=== PATIENT | male | born 1965 | race Hispanic/Latino ===

== ENCOUNTER 2022-07-28 05:27 | Emergency (ER) | payer OTHER, BC ==
[2022-07-28] MEDS ORDERED: Boostrix 0.5 ML (Tdap) VIAL (>/=7 yrs of age) ONE (05:49)
[2022-07-28 06:09] LABS: ALT (SGPT) 11 U/L (8-55); AST (SGOT) 12 U/L (5-34); Albumin 3.9 g/dL (3.5-5.0); Alkaline Phosphatase 67 U/L (40-110); Anion Gap 16 mmol/L (10-20); BUN (Urea Nitrogen) 47 mg/dL (8.4-25.7); Bilirubin, Total 0.6 mg/dL (0.2-1.2); Calc. Creatinine Clearance 0 mL/min (70-130); Calcium 8.9 mg/dL (7.8-10.44); Carbon Dioxide 24 mmol/L (22-29); Chloride 104 mmol/L (98-107); Estimated GFR 10; Globulin 3.8 g/dL (2.4-3.5); Glucose 147 mg/dL (70-105); Potassium 3.9 mmol/L (3.5-5.1); Protein, Total 7.7 g/dL (6.0-8.3); Sodium 140 mmol/L (136-145)
[2022-07-28 06:10] LABS: Acetaminophen Less than 10.0 mcg/mL (10.0-30.0); Alcohol Less than 10 mg/dL (Less than 10); Lipase 93 U/L (8-78); Salicylate Less than 8.0 mg/dL (15.0-30.0)
[2022-07-28 06:23] LABS: Actual Bicarbonate (HCO3v) 24 mEq/L (22-28); Base Excess -1.2 mEq/L (-2.0 to +3.0); Calcium, Ionized (venous) 1.08 mmol/L (1.16-1.32); Chloride (VBG) 103 mmol/L (98-106); Hemoglobin (Hb) 12.2 g/dL (13.1-17.2); Potassium (VBG) 3.59 mmol/L (3.70-5.30); Sodium 138.3 mmol/L (133-146); pH (venous) 7.39 (7.32-7.43)
[2022-07-28 07:25] LABS: #Basophils 0.1 thou/uL (0.0-0.2); #Eosinphils 0.2 thou/uL (0.0-0.7); #Lymphocytes 1.7 thou/uL (1.20-3.40); #Monocytes 0.6 thou/uL (0.11-0.59); #Neutrophils 8.7 thou/uL (1.40-6.50); %Basophils 0.6 % (0.0-1.0); %Eosinophils 1.9 % (0.0-10.0); %Lymphocytes 15.5 % (21.0-51.0); %Neutrophils 77.1 % (42.0-75.0); Hemoglobin 11.7 g/dL (14.0-18.0); Mean Corpuscular HGB CONC 34.9 g/dL (32.0-36.0); Mean Corpuscular Hemoglobin 31.4 pg (27.0-31.0); Mean Corpuscular Volume 89.9 fl (78.0-98.0); Mean Platelet Volume 7.4 fL (7.4-10.4); Platelet Count 251 10x3/uL (130-400); RBC Distribution Width 12.8 % (11.5-14.5); Red Blood Cell (RBC) Count 3.72 mill/uL (4.70-6.10); White Blood Cell (WBC) Count 11.3 10x3/uL (4.8-10.8)
[2022-07-28] MEDS ORDERED: Iopamidol 370 76% 100 ML VIAL ONE (08:29)
== END 2022-07-28 11:13 | disposition home or self-care (01) ==
LOC: ERS 05:27
DX: S00.81XA Abrasion of other part of head, initial encounter (principal); S50.312A Abrasion of left elbow, initial encounter; E27.8 Other specified disorders of adrenal gland; I12.9 Hypertensive chronic kidney disease with stage 1 through stage 4 chronic kidney disease, or unspecified chronic kidney disease; N18.9 Chronic kidney disease, unspecified; V58.0XXA Driver of pick-up truck or van injured in noncollision transport accident in nontraffic accident, initial encounter; Y92.410 Unspecified street and highway as the place of occurrence of the external cause; Z99.2 Dependence on renal dialysis
CPT/HCPCS: 36415; 70450; 71045; 71260; 72125; 74177; 80053; 80307; 82805; 83605; 83690; 85025; 85610; 85730; 90715; 93005; G0390